=== PATIENT | female | born 2000 | race Native Hawaiian/Other Pacific Islander ===

== ENCOUNTER 2022-06-07 23:17 | Emergency (ER) | payer OTHER ==
[~2022-06-07] VITALS: Ht 162.6 cm; Wt 47.6 kg
--- NOTE | 2022-06-07 23:17 | NUR ---
pt to bed at this time
[2022-06-07 23:18] VITALS: BP 106/62
--- NOTE | 2022-06-07 23:49 | NUR ---
21YR OLD FEMALE BIB EMS C/O POSS ALLERGIC REACTION TO MOTRIN. PT HAS RASH ON NECK TO FACE TRUNK OF BODY AND BACK. DENIES SOB OR CP. SP02 100% RA. DENIES ANY PAIN. 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 HOB ELEVATED. BED AT LOWEST POSITION NO MED HX
[2022-06-08] MEDS ORDERED: DIPH25TA53 PO (00:21)
[2022-06-08] MEDS ORDERED: ACET-10509 PO (00:21)
[2022-06-08 00:39] VITALS: BP 124/84
--- NOTE | 2022-06-08 00:39 | NUR ---
Chart checked and completed.
--- NOTE | 2022-06-08 00:39 | NUR ---
Patient discharged with v/s stable. Written and verbal after care instructions given and explained. Patient verbalized understanding. Ambulatory with steady gait. All questions addressed prior to discharge. Advised to follow up with PMD.
== END 2022-06-08 00:39 | disposition home or self-care (01) ==
LOC: MED 23:17
DX: L50.0 Allergic urticaria (principal); Z79.899 Other long term (current) drug therapy; Z88.6 Allergy status to analgesic agent
CPT/HCPCS: 99283; Q0163